=== PATIENT | female | born 1990 | race Caucasian/White ===

== ENCOUNTER 2019-12-01 04:12 | Observation (INO) | payer OTHER ==
[~2019-12-01] VITALS: Ht 162.6 cm; Wt 65.8 kg
[2019-12-01 04:14] VITALS: Ht 162.6 cm; Wt 65.8 kg
[2019-12-01 08:00] VITALS: BP 108/69
[2019-12-01 12:00] VITALS: BP 106/78
[2019-12-01 12:39] LABS: BASOPHILS 0 % (0-2); EOSINOPHILS 0 % (0-7); HEMATOCRIT 37.6 % (36.0-48.0); HEMOGLOBIN 11.2 g/dL (12-16); IMMATURE GRANULOCYTES 0.1 % (0-5); LYMPHOCYTES 7.4 % (15-50); MCH 21.6 pg (26.0-34.0); MCHC 29.8 g/dL (31.0-37.0); MCV 72.6 fL (80.0-100.0); MONOCYTES 1.2 % (2-11); NEUTROPHILS 91.3 % (40-80); PLATELET COUNT 348 10x3/uL (130-400); RBC 5.18 10x6/uL (4.00-5.40); RDW 17.7 % (11.5-14.5); WBC 8.2 10x3/uL (4.8-10.8)
[2019-12-01 13:25] LABS: ALBUMIN 4.2 g/dL (3.4-5.0); ALKALINE PHOSPHATASE 58 U/L (30-120); ALT (SGPT) 27 U/L (10-68); BILIRUBIN - TOTAL 0.37 mg/dL (0.2-1.3); CALC OSMOLALITY 281 mosm/kg (275-300); CALCIUM 9.2 mg/dL (8.5-10.1); CARBON DIOXIDE 22.5 mmol/L (21.0-32.0); CHLORIDE - SERUM 107 mmol/L (98-107); CREATININE - SERUM 0.9 mg/dL (0.6-1.3); GLUCOSE 144 mg/dL (74-106); MAGNESIUM - SERUM 1.9 mg/dL (1.8-2.4); POTASSIUM - SERUM 4.4 mmol/L (3.5-5.1); PROTEIN - SERUM 7.3 g/dL (6.4-8.2); SODIUM 140 mmol/L (136-145); UREA NITROGEN 13 mg/dL (7-18); eGFR NON AFRICAN AMERICAN 78 mL/min (90-120)
--- NOTE | 2019-12-01 20:00 | NUR ---
PT WANTED TO PASS ALONG TO MD THAT HER AND HER SPOUSE HAD COVID APX 1 MONTH AGO.
[2019-12-01 20:05] VITALS: BP 108/69
[2019-12-01 21:37] VITALS: BP 99/60
[2019-12-02 00:42] VITALS: BP 97/58
[2019-12-02 04:25] VITALS: BP 101/55
[2019-12-02 09:38] VITALS: BP 101/55
[2019-12-02] MEDS ORDERED: CLARITIN 10 MG10 MG PO (10:35)
[2019-12-02] MEDS ORDERED: PREDNISONE10 MG PO (10:35)
[2019-12-02] MEDS ORDERED: PEPCID40 MG PO (10:35)
[2019-12-02] MEDS ORDERED: EPIPEN 2-P0.3 MG/0.3 IM (10:35)
--- NOTE | 2019-12-02 18:38 | MORECARE ---
CASE MANAGEMENT DISCHARGE SUMMARY PATIENT: VIOLETTE MORGAN UNIT: [id number] ADM DATE: 12/01/19 AGE: 29 : 88 SEX: F ROOM/BED: D.E04 AUTHOR: ODILIA SALAZAR PHYSICIAN: REFERRING PHYSICIAN: MARY TOLBERT MD DATE OF SERVICE: 12/02/19 Discharge Plan Patient Name: VIOLETTE MORGAN [facility] [facility] 1990 Planned Disposition: Home Anticipated Discharge Date: 12/02/19 Discharge Date: Expected LOS: 1 Initial Reviewer: [email or web address] Initial Review Date: 12/01/2019 Generated: 12/02/19 7:37 pm Patient Name: VIOLETTE MORGAN Page [id number] at 1838 All edits/amendments must be made on the electronic document DICTATION DATE: 12/02/191836 INDUSTRIAL RELATIONS SPECIALIST: CATHERINE 12/02/191836 RPT#: [id number] DC DATE: STATUS: ADM IN [facility] [address] [place] [address] END OF REPORT
[2019-12-04 13:11] LABS: EHRLICHIA CHAFF IGG Negative (Neg:<1:64); EHRLICHIA CHAFF IGM Negative (Neg:<1:20); HGE IGG TITER Negative (Neg:<1:64); HGE IGM TITER Negative (Neg:<1:20)
== END 2019-12-02 12:15 | disposition home or self-care (01) ==
LOC: D.ER 04:12 → D.EDHOLD 06:02 → OBSVTIME 06:02 → D.EDHOLD 12-02 12:15
PROVIDERS: Family Medicine; ADMIT Family Medicine; ATTEND Family Medicine
DX: L50.9 Urticaria, unspecified (principal); T78.40XA Allergy, unspecified, initial encounter